=== PATIENT | female | born 1945 ===

== ENCOUNTER 2021-08-21 16:42 | Observation (INO) ==
[2021-08-21 17:43] LABS: ABS Lymphocytes 2.4 10^3/ul (1.0-4.8); ABS Monocytes 0.8 10^3/ul (0-0.8); ABS Neutrophils 9.8 10^3/ul (1.5-7.7); Eosinophil % 0.2 %; Hematocrit 43 % (35-47); Lymphocyte % 18.3 %; Mean Corpuscular HGB Conc 33 g/dL (31-36); Mean Corpuscular Hemoglobin 31 pg (27-31); Mean Corpuscular Volume 93 fL (80-97); Mean Platelet Volume 8.6 fL (7.4-10.4); Nucleated Red Blood Cells % 0.1; Platelet Count 219 10^3/uL (150-450); Red Blood Count 4.59 10^6 /uL (3.70-4.87); Red Cell Distribution Width 13 % (10-15)
[2021-08-21 18:11] LABS: Urine Appearance Clear; Urine Bilirubin Negative (Negative); Urine Blood 2+ (Negative); Urine Color Yellow; Urine Glucose Negative (Negative); Urine Ketones 1+ (Negative); Urine Nitrite Negative (Negative); Urine Protein Negative (Negative); Urine Specific Gravity 1.011 (1.002-1.030); Urine Urobilinogen Negative (Negative)
[2021-08-21 18:22] LABS: Albumin 4.4 g/dL (3.2-5.2); Albumin/Globulin Ratio 1.5 (1-3); C Reactive Protein 129.19 mg/L (<8.01); Globulin 2.9 g/dL (2-4); Potassium 4.1 mmol/L (3.5-5.0); Total Bilirubin 1.1 mg/dL (0.2-1.0); Total Protein 7.3 g/dL (6.4-8.9); eGFR CKD-EPI 74.5 (>60)
[2021-08-21 18:31] LABS: Urine Bacteria Absent (Absent); Urine Red Blood Cell Trace(0-2/hpf) (Absent); Urine White Blood Cell Trace(0-5/hpf) (Absent)
[2021-08-21] MEDS ORDERED: Morphine 4 MG/ML VIAL (1 ml) IV ONE (20:02)
[2021-08-21] MEDS ORDERED: Piperacillin/Tazobac ADVAN 3.375 GM in NS 0.9% 100 ml BAG 100 ML IV ONE (20:27)
[2021-08-21] MEDS ORDERED: oxyCODONE/Acetamin 5/325 mg TAB PO PRN (20:50)
[2021-08-21] MEDS ORDERED: Ondansetron 4 mg VIAL 2 MG/ML 2 ml VIAL IV PRN (20:50)
[2021-08-21] MEDS ORDERED: NS 0.9% 1000 ml BAG 1,000 ML IV SCH (21:00)
[2021-08-21] MEDS ORDERED: HYDROmorphone 0.5 MG/0.5 ML SYRINGE IV SLOW PU PRN (21:03)
[2021-08-22] MEDS: Piperacillin/Tazobactam VIAL 3.375 GM in NS 0.9% 100 ml BAG 100 ML IVPB SCH ×2 (04:05→08:31)
[2021-08-22] MEDS ORDERED: fentaNYL 100 mcg/2 ml 50 MCG/ML VIAL IV PRN (10:27)
[2021-08-22] MEDS ORDERED: oxyCODONE/Acetamin 5/325 mg TAB PO PRN (10:27)
[2021-08-22] MEDS ORDERED: Naloxone 0.4 mg VIAL 0.4 mg/ml 1 ml VIAL IV PRN (10:27)
[2021-08-22] MEDS ORDERED: Ondansetron 4 mg VIAL 2 MG/ML 2 ml VIAL IV PRN (10:27)
[2021-08-22] MEDS ORDERED: Propofol 10 MG/ML 20 ML BTL ONE (10:53)
[2021-08-22] MEDS ORDERED: Ondansetron 4 mg VIAL 2 MG/ML 2 ml VIAL ONE (10:53)
[2021-08-22] MEDS ORDERED: Dexamethasone IV 4 MG/ML VIAL 1 ml VIAL ONE (10:53)
[2021-08-22] MEDS ORDERED: Lidocaine 2% PF 5 ML VIAL ONE (10:53)
[2021-08-22] MEDS ORDERED: Rocuronium 50 mg VIAL 10 mg/ml 5 ml VIAL (50 mg) ONE (10:54)
[2021-08-22] MEDS ORDERED: Midazolam 2 mg/2 ml VIAL 1 mg/ml 2 ml VIAL (2 mg) ONE (10:54)
[2021-08-22] MEDS ORDERED: fentaNYL 100 mcg/2 ml 50 MCG/ML VIAL ONE ×2 (10:54→10:58)
[2021-08-22] MEDS ORDERED: Bupivacaine 0.25% SDV 30 ML ONE (11:30)
[2021-08-22] MEDS ORDERED: Acetaminophen IV 1 GM/100ML 100 ML IV ONE (12:07)
[2021-08-22] MEDS ORDERED: Enoxaparin 40 MG/0.4 ML SYR SUBCUT SCH (14:00)
[2021-08-22 15:02] VITALS: BP 130/51
== END 2021-08-22 14:45 | disposition home or self-care (01) ==
LOC: EDHOLD 16:42 → ED 16:42 → MEDTELE 23:36
PROVIDERS: ADMIT Surgery; ATTEND Surgery